=== PATIENT | male | born 1945 | race Caucasian/White ===

== ENCOUNTER 2018-08-05 09:40 | Inpatient (IN) | payer OTHER ==
[~2018-08-05] VITALS: Ht 182.9 cm; Wt 83.9 kg
[2018-08-05] MEDS ORDERED: ALPRAZOLAM OD0.25 MG PO (09:50)
[2018-08-05] MEDS ORDERED: AMLODIPINE BESY10 MG PO (09:50)
[2018-08-05] MEDS ORDERED: LIPITOR20 MG PO (09:50)
== END 2018-08-12 15:42 | disposition home or self-care (01) | DRG 377 ==
LOC: ER 09:40 → ICU-2 16:39 → MEDI 16:39
PROVIDERS: ADMIT Internal Medicine
PROC: BW24ZZZ Computerized Tomography (CT Scan) of Chest and Abdomen (ICD-10-PCS; 2018-08-05)
PROC: 3E0F7GC Introduction of Other Therapeutic Substance into Respiratory Tract, Via Natural or Artificial Opening (ICD-10-PCS; 2018-08-05)
PROC: 0T9B70Z Drainage of Bladder with Drainage Device, Via Natural or Artificial Opening (ICD-10-PCS; 2018-08-05)
PROC: 4A12X4Z Monitoring of Cardiac Electrical Activity, External Approach (ICD-10-PCS; 2018-08-05)
PROC: 0DJ08ZZ Inspection of Upper Intestinal Tract, Via Natural or Artificial Opening Endoscopic (ICD-10-PCS; principal; 2018-08-07)
PROC: 05H533Z Insertion of Infusion Device into Right Subclavian Vein, Percutaneous Approach (ICD-10-PCS; 2018-08-07)
PROC: 4A033R1 Measurement of Arterial Saturation, Peripheral, Percutaneous Approach (ICD-10-PCS; 2018-08-07)
PROC: BW40ZZZ Ultrasonography of Abdomen (ICD-10-PCS; 2018-08-07)
DX: K92.0 Hematemesis (principal); J69.0 Pneumonitis due to inhalation of food and vomit; J80 Acute respiratory distress syndrome; A41.89 Other specified sepsis; S22.41XA Multiple fractures of ribs, right side, initial encounter for closed fracture; I82.622 Acute embolism and thrombosis of deep veins of left upper extremity; R65.10 Systemic inflammatory response syndrome (SIRS) of non-infectious origin without acute organ dysfunction; J90 Pleural effusion, not elsewhere classified; K29.01 Acute gastritis with bleeding; F10.120 Alcohol abuse with intoxication, uncomplicated; E11.9 Type 2 diabetes mellitus without complications; Z79.4 Long term (current) use of insulin; K26.3 Acute duodenal ulcer without hemorrhage or perforation; T17.210A Gastric contents in pharynx causing asphyxiation, initial encounter